=== PATIENT | female | born 1990 | race African-American/Black ===

== ENCOUNTER 2016-08-10 19:53 | Emergency (ER) | payer OTHER, SELFPAY ==
[~2016-08-10 19:53] MED LIST: Iopamidol 370 76% 100 ML VIAL ONE
[2016-08-10 20:34] LABS: #Basophils 0.1 thou/uL (0.0-0.2); #Eosinphils 0.6 thou/uL (0.0-0.7); #Lymphocytes 1.8 thou/uL (1.20-3.40); #Monocytes 0.4 thou/uL (0.11-0.59); #Neutrophils 2.9 thou/uL (1.40-6.50); %Basophils 1.3 % (0.0-1.0); %Lymphocytes 30.8 % (21.0-51.0); %Monocytes 7.5 % (0.0-10.0); %Neutrophils 49.3 % (42.0-75.0); Hemoglobin 13.4 g/dL (12.0-16.0); Mean Corpuscular HGB CONC 31.8 g/dL (32.0-36.0); Mean Corpuscular Hemoglobin 27.3 pg (27.0-31.0); Mean Corpuscular Volume 85.7 fl (81.0-99.0); Mean Platelet Volume 7.1 fL (7.4-10.4); Platelet Count 243 thou/uL (130-400); White Blood Cell (WBC) Count 5.9 thou/uL (4.8-10.8)
[2016-08-10 20:36] LABS: Bilirubin Negative (Negative); Blood, Urine Negative (Negative); Clarity Clear (Clear); Glucose, Urine (Dipstick) Negative (Negative); Leukocyte Negative (Negative); Nitrite Negative (Negative); Protein, Urine (Dipstick) Negative (Neg-Trace)
[2016-08-10 20:37] LABS: Pregnancy Test - Urine (BHCG) Negative (NEGATIVE); Pregu Control Background? CLEAR/WHITE (CLR/WHITE); Pregu Control Bar Appear? YES (CONTROL BAR)
[2016-08-10 20:52] LABS: ALT (SGPT) 21 U/L (8-55); AST (SGOT) 23 U/L (5-34); Albumin 4.4 g/dL (3.5-5.0); Alkaline Phosphatase 102 U/L (40-150); Anion Gap 15 mmol/L (10-20); BUN (Urea Nitrogen) 11 mg/dL (7.0-18.7); Bilirubin, Total 0.3 mg/dL (0.2-1.2); CRP (Inflammatory) Less than 0.50 mg/dL (= or < 0.5); Calc. Creatinine Clearance 0 mL/min (70-130); Calcium 9.8 mg/dL (7.8-10.44); Carbon Dioxide 22 mmol/L (22-29); Chloride 105 mmol/L (98-107); Estimated GFR-MDRD Greater than 90; Glucose 121 mg/dL (70-105); Lipase 21 U/L (8-78); Potassium 3.7 mmol/L (3.5-5.1); Protein, Total 7.4 g/dL (6.0-8.3); Sodium 138 mmol/L (136-145)
[2016-08-10] MEDS ORDERED: diphenhydrAMINE HCl 50 MG/ML 1 ML VIAL ONE (21:08)
--- NOTE | 2016-08-10 21:21 | CT ---
CT OF THE ABDOMEN AND PELVIS WITH CONTRAST 08/10/16 COMPARISON: None. HISTORY: Left lower quadrant and suprapubic abdominal pain for a week. TECHNIQUE: Multiple contiguous axial images were obtained in a CT of the abdomen and pelvis with contrast. Andrea nal reformats were performed. FINDINGS: The liver, gallbladder, kidneys, adrenal glands, spleen and pancreas are unremarkable. No free air, free fluid, or stranding changes are seen in the abdomen or pelvis. Multiple calcifications in the p salas likely represent phleboliths. The reproductive organs are unremarkable. The large and small raina wel are unremarkable. The appendix is normal. The osseous structures, visualized inferior thorax and abdominal wall soft tissues are unremarkable. IMPRESSION: No evidence of acute intra-abdominal/pelvic abnormality. POS: REBEL
== END 2016-08-10 21:45 | disposition home or self-care (01) ==
LOC: NAV ERS 19:53
DX: R10.9 Unspecified abdominal pain (principal)
CPT/HCPCS: 74177; 80053; 81003; 81025; 83690; 85025; 86140; 96374; J1200

== ENCOUNTER 2016-10-08 16:14 | Emergency (ER) | payer SELFPAY ==
[2016-10-08] MEDS ORDERED: Ibuprofen 200 MG TAB ONE (16:45)
--- NOTE | 2016-10-08 17:02 | RAD ---
LEFT FINGER THREE VIEWS: History: Left thumb pain. Comparison: None. FINDINGS: No displaced fracture or malalignment of the thumb. Mild edema of the metacarpal phalangeal joint. IMPRESSION: Metacarpal phalangeal joint edema without fracture or malalignment appreciated. POS: MIN
== END 2016-10-08 17:19 | disposition home or self-care (01) ==
LOC: NAV ERS 16:14
DX: S63.602A Unspecified sprain of left thumb, initial encounter (principal); W22.8XXA Striking against or struck by other objects, initial encounter

== ENCOUNTER 2016-11-30 14:27 | Emergency (ER) | payer SELFPAY ==
[2016-11-30] MEDS ORDERED: Ibuprofen 200 MG TAB ONE (15:00)
[2016-11-30] MEDS ORDERED: Sulfameth/Trimethoprim DS 800-160mg TAB ONE (15:00)
== END 2016-11-30 15:06 | disposition home or self-care (01) ==
LOC: NAV ERS 14:27
DX: L02.415 Cutaneous abscess of right lower limb (principal)
CPT/HCPCS: 99283

== ENCOUNTER 2017-06-13 19:13 | Emergency (ER) | payer SELFPAY ==
[2017-06-13 19:40] LABS: Bilirubin Negative (Negative); Blood, Urine Negative (Negative); Glucose, Urine (Dipstick) Negative (Negative); Leukocyte Negative (Negative); Nitrite Negative (Negative); Protein, Urine (Dipstick) Negative (Neg-Trace); Specific Gravity, Urine 1.025 (1.005-1.030); Urobilinogen 0.2 mg/dL (0.2-1.0); pH, Urine 6.5 (5.0-9.0)
[2017-06-13 19:44] LABS: Clarity SL HAZY (Clear)
[2017-06-13] MEDS ORDERED: Lidocaine Viscous Sol 2% 15 ml UD Cup ONE (19:46)
[2017-06-13] MEDS ORDERED: Mag-Al Plus 1200 MG/1200 MG/120 MG/30 ML UDCUP ONE (19:46)
[2017-06-13 19:47] LABS: Pregnancy Test - Urine (BHCG) Negative (Negative); Pregu Control Background? CLEAR/WHITE (CLR/WHITE); Pregu Control Bar Appear? YES (CONTROL BAR); Specific Gravity 1.025 (1.002-1.036)
[2017-06-13] MEDS ORDERED: Famotidine 20 MG TAB ONE (19:56)
[2017-06-13 20:28] LABS: #Basophils 0.1 thou/uL (0.0-0.2); #Eosinphils 0.3 thou/uL (0.0-0.7); #Lymphocytes 2.3 thou/uL (1.20-3.40); #Monocytes 0.5 thou/uL (0.11-0.59); #Neutrophils 2.9 thou/uL (1.40-6.50); %Basophils 1.6 % (0.0-1.0); %Eosinophils 5.3 % (0.0-10.0); %Lymphocytes 37.9 % (21.0-51.0); %Monocytes 7.8 % (0.0-10.0); %Neutrophils 47.5 % (42.0-75.0); Hemoglobin 13.3 g/dL (12.0-16.0); Mean Corpuscular HGB CONC 32.2 g/dL (32.0-36.0); Mean Corpuscular Hemoglobin 27.3 pg (27.0-31.0); Mean Corpuscular Volume 84.6 fl (81.0-99.0); Mean Platelet Volume 7.6 fL (7.4-10.4); Platelet Count 213 thou/uL (130-400); RBC Distribution Width 11.8 % (11.5-14.5); Red Blood Cell (RBC) Count 4.89 mill/uL (4.20-5.40)
[2017-06-13 20:36] LABS: ALT (SGPT) 21 U/L (8-55); AST (SGOT) 24 U/L (5-34); Albumin 4.7 g/dL (3.5-5.0); Alkaline Phosphatase 82 U/L (40-150); Anion Gap 13 mmol/L (10-20); BUN (Urea Nitrogen) 14 mg/dL (7.0-18.7); Bilirubin, Total 0.4 mg/dL (0.2-1.2); Calc. Creatinine Clearance 0 mL/min (70-130); Calcium 9.8 mg/dL (7.8-10.44); Carbon Dioxide 22 mmol/L (22-29); Chloride 106 mmol/L (98-107); Estimated GFR-MDRD Greater than 90; Globulin 2.8 g/dL (2.4-3.5); Glucose 105 mg/dL (70-105); Lipase 20 U/L (8-78); Potassium 3.7 mmol/L (3.5-5.1); Protein, Total 7.5 g/dL (6.0-8.3); Sodium 137 mmol/L (136-145)
== END 2017-06-13 20:50 | disposition home or self-care (01) ==
LOC: NAV ERS 19:13
DX: R10.13 Epigastric pain (principal)
CPT/HCPCS: 80053; 81003; 81025; 83690; 85025; 99284

== ENCOUNTER 2017-08-21 18:39 | Emergency (ER) | payer SELFPAY ==
[2017-08-21 19:24] LABS: Bilirubin Negative (Negative); Blood, Urine Trace (Negative); Glucose, Urine (Dipstick) Negative (Negative); Leukocyte Moderate (Negative); Nitrite Negative (Negative); Protein, Urine (Dipstick) Trace mg/dL (Neg-Trace); Specific Gravity, Urine 1.025 (1.005-1.030)
[2017-08-21 19:34] LABS: Clarity SL HAZY (Clear)
[2017-08-21 19:37] LABS: Bacteria/HPF 1+ HPF (None Seen); Pregnancy Test - Urine (BHCG) Negative (Negative); Pregu Control Background? CLEAR/WHITE (CLR/WHITE); Pregu Control Bar Appear? YES (CONTROL BAR); RBC/HPF 0-3 HPF (0-3); Specific Gravity 1.025 (1.002-1.036)
== END 2017-08-21 19:54 | disposition home or self-care (01) ==
LOC: NAV ERS 18:39
DX: B37.3 Candidiasis of vulva and vagina (principal)
CPT/HCPCS: 81003; 81015; 81025; 99283

== ENCOUNTER 2017-11-18 08:36 | Emergency (ER) | payer SELFPAY ==
[2017-11-18] MEDS ORDERED: Ondansetron HCl/PF 4 MG/2 ML Vial ONE (09:12)
== END 2017-11-18 09:13 | disposition home or self-care (01) ==
LOC: NAV ERS 08:36
DX: K02.9 Dental caries, unspecified (principal); K03.81 Cracked tooth; R59.0 Localized enlarged lymph nodes
CPT/HCPCS: 99282; J2405

== ENCOUNTER 2017-12-04 15:12 | Emergency (ER) | payer SELFPAY | END 2017-12-04 16:00 | disposition home or self-care (01) | LOC: NAV ERS 15:12 | DX: J06.9 Acute upper respiratory infection, unspecified (principal); S01.512D Laceration without foreign body of oral cavity, subsequent encounter; Z79.899 Other long term (current) drug therapy | CPT/HCPCS: 87081; 87430; 99283 ==

== ENCOUNTER 2018-02-27 15:07 | Emergency (ER) | payer MEDICAID, SELFPAY ==
[2018-02-27] MEDS ORDERED: Sodium Chloride 0.9% 1,000 ML ONE (15:32)
[2018-02-27 15:41] LABS: Bilirubin Negative (Negative); Blood, Urine Negative (Negative); Clarity Clear (Clear); Glucose, Urine (Dipstick) Negative (Negative); Leukocyte Negative (Negative); Nitrite Negative (Negative); Protein, Urine (Dipstick) 30 mg/dL (Neg-Trace)
[2018-02-27 15:43] LABS: Pregnancy Test - Urine (BHCG) Negative (Negative); Pregu Control Background? CLEAR/WHITE (CLR/WHITE); Pregu Control Bar Appear? YES (CONTROL BAR)
[2018-02-27] MEDS ORDERED: Ketorolac Tromethamine 30 MG/ML VIAL ONE (15:47)
[2018-02-27 16:02] LABS: RBC/HPF 0-3 HPF (0-3)
[2018-02-27 16:03] LABS: Bacteria/HPF 2+ HPF (None Seen)
== END 2018-02-27 16:30 | disposition home or self-care (01) ==
LOC: NAV ERS 15:07
DX: G44.209 Tension-type headache, unspecified, not intractable (principal); N39.0 Urinary tract infection, site not specified
CPT/HCPCS: 81003; 81015; 81025; 96361; 96374; J1885; J7050

== ENCOUNTER 2018-06-13 19:58 | Emergency (ER) | payer MEDICAID, SELFPAY ==
[2018-06-13] MEDS ORDERED: Ondansetron ODT 4 MG TAB ONE ×2 (20:30→21:53)
[2018-06-13] MEDS ORDERED: Ondansetron PF 4 MG/2 ML Vial ONE (20:30)
[2018-06-13] MEDS ORDERED: Sodium Chloride 0.9% 1,000 ML ONE (20:30)
[2018-06-13 20:47] LABS: #Basophils 0.1 thou/uL (0.0-0.2); #Eosinphils 0.1 thou/uL (0.0-0.7); #Lymphocytes 1.8 thou/uL (1.20-3.40); #Monocytes 0.7 thou/uL (0.11-0.59); #Neutrophils 5.2 thou/uL (1.40-6.50); %Basophils 0.8 % (0.0-1.0); %Eosinophils 1.5 % (0.0-10.0); %Lymphocytes 22.6 % (21.0-51.0); %Monocytes 8.3 % (0.0-10.0); %Neutrophils 66.8 % (42.0-75.0); Hemoglobin 13.2 g/dL (12.0-16.0); Mean Corpuscular HGB CONC 31.1 g/dL (32.0-36.0); Mean Corpuscular Hemoglobin 26.5 pg (27.0-31.0); Mean Corpuscular Volume 85.2 fL (78.0-98.0); Mean Platelet Volume 7.4 fL (7.4-10.4); Platelet Count 239 thou/uL (130-400); RBC Distribution Width 11.6 % (11.5-14.5); Red Blood Cell (RBC) Count 4.98 mill/uL (4.20-5.40); White Blood Cell (WBC) Count 7.8 thou/uL (4.8-10.8)
[2018-06-13 21:02] LABS: ALT (SGPT) 13 U/L (8-55); AST (SGOT) 19 U/L (5-34); Albumin 4.3 g/dL (3.5-5.0); Alkaline Phosphatase 50 U/L (40-150); Anion Gap 15 mmol/L (10-20); BUN (Urea Nitrogen) 10 mg/dL (7.0-18.7); Bilirubin, Total 0.4 mg/dL (0.2-1.2); Calc. Creatinine Clearance 0 mL/min (70-130); Calcium 9.7 mg/dL (7.8-10.44); Carbon Dioxide 20 mmol/L (22-29); Chloride 107 mmol/L (98-107); Estimated GFR-MDRD Greater than 90; Globulin 2.6 g/dL (2.4-3.5); Glucose 73 mg/dL (70-105); Lipase 26 U/L (8-78); Protein, Total 6.9 g/dL (6.0-8.3); Sodium 138 mmol/L (136-145)
[2018-06-13 21:42] LABS: Bilirubin Small (Negative); Blood, Urine Negative (Negative); Clarity Clear (Clear); Glucose, Urine (Dipstick) Negative (Negative); Leukocyte Negative (Negative); Nitrite Negative (Negative); Protein, Urine (Dipstick) Trace mg/dL (Neg-Trace)
[2018-06-13 21:44] LABS: Specific Gravity, Urine 1.028 (1.002-1.036)
== END 2018-06-13 22:10 | disposition home or self-care (01) ==
LOC: NAV ERS 19:58
DX: O21.0 Mild hyperemesis gravidarum (principal); O99.89 Other specified diseases and conditions complicating pregnancy, childbirth and the puerperium; R10.11 Right upper quadrant pain; R10.12 Left upper quadrant pain; Z3A.10 10 weeks gestation of pregnancy
CPT/HCPCS: 36416; 80053; 81003; 83690; 85025; 96361; 96374; J2405; J7050; Q0162

== ENCOUNTER 2018-07-01 10:39 | Emergency (ER) | payer MEDICAID, OTHER ==
[2018-07-01] MEDS ORDERED: Metoclopramide HCl 10 MG/2 ML VIAL ONE (11:08)
[2018-07-01] MEDS ORDERED: diphenhydrAMINE 50 MG/ML VIAL ONE (11:08)
[2018-07-01] MEDS ORDERED: Sodium Chloride 0.9% 1,000 ML ONE (11:08)
[2018-07-01 11:27] LABS: ALT (SGPT) 13 U/L (8-55); AST (SGOT) 23 U/L (5-34); Albumin 4.1 g/dL (3.5-5.0); Alkaline Phosphatase 44 U/L (40-150); Anion Gap 17 mmol/L (10-20); BUN (Urea Nitrogen) 6 mg/dL (7.0-18.7); Bilirubin, Total 0.5 mg/dL (0.2-1.2); Calc. Creatinine Clearance 0 mL/min (70-130); Calcium 9.8 mg/dL (7.8-10.44); Carbon Dioxide 19 mmol/L (22-29); Chloride 104 mmol/L (98-107); Estimated GFR-MDRD Greater than 90; Globulin 2.7 g/dL (2.4-3.5); Glucose 79 mg/dL (70-105); Lipase 19 U/L (8-78); Potassium 3.7 mmol/L (3.5-5.1); Protein, Total 6.8 g/dL (6.0-8.3); Sodium 136 mmol/L (136-145)
[2018-07-01 11:32] LABS: #Basophils 0.1 thou/uL (0.0-0.2); #Eosinphils 0.1 thou/uL (0.0-0.7); #Lymphocytes 1.4 thou/uL (1.20-3.40); #Monocytes 0.4 thou/uL (0.11-0.59); #Neutrophils 4.6 thou/uL (1.40-6.50); %Basophils 1.1 % (0.0-1.0); %Eosinophils 1.7 % (0.0-10.0); %Lymphocytes 21.5 % (21.0-51.0); %Monocytes 5.5 % (0.0-10.0); %Neutrophils 70.2 % (42.0-75.0); Hemoglobin 12.3 g/dL (12.0-16.0); Mean Corpuscular HGB CONC 31.6 g/dL (32.0-36.0); Mean Corpuscular Hemoglobin 26.8 pg (27.0-31.0); Mean Corpuscular Volume 84.6 fL (78.0-98.0); Mean Platelet Volume 6.5 fL (7.4-10.4); Platelet Count 238 thou/uL (130-400); RBC Distribution Width 11.8 % (11.5-14.5); Red Blood Cell (RBC) Count 4.59 mill/uL (4.20-5.40); White Blood Cell (WBC) Count 6.5 thou/uL (4.8-10.8)
[2018-07-01 12:24] LABS: Bilirubin Negative (Negative); Blood, Urine Trace (Negative); Clarity Clear (Clear); Glucose, Urine (Dipstick) Negative (Negative); Leukocyte Negative (Negative); Nitrite Negative (Negative); Protein, Urine (Dipstick) Negative (Neg-Trace)
[2018-07-01 12:34] LABS: Bacteria/HPF Rare-Few HPF (None Seen); RBC/HPF 0-3 HPF (0-3); WBC/HPF None Seen HPF (0-3)
[2018-07-01 12:35] LABS: Other Microscopic Description NO
== END 2018-07-01 12:40 | disposition home or self-care (01) ==
LOC: NAV ERS 10:39
DX: O21.0 Mild hyperemesis gravidarum (principal); Z3A.12 12 weeks gestation of pregnancy
CPT/HCPCS: 36415; 80053; 81003; 81015; 83690; 85025; 96361; 96374; 96375; J1200; J2765; J7050

== ENCOUNTER 2018-11-14 07:31 | Emergency (ER) | payer OTHER ==
[2018-11-14] MEDS ORDERED: Sodium Chloride 0.9% 1,000 ML ONE (07:57)
[2018-11-14] MEDS ORDERED: Ondansetron PF 4 MG/2 ML Vial ONE (07:57)
[2018-11-14 08:08] LABS: #Eosinphils 0.1 thou/uL (0.0-0.7); #Lymphocytes 1.5 thou/uL (1.20-3.40); #Monocytes 0.8 thou/uL (0.11-0.59); #Neutrophils 6.3 thou/uL (1.40-6.50); %Basophils 0.5 % (0.0-1.0); %Eosinophils 1.5 % (0.0-10.0); %Lymphocytes 16.9 % (21.0-51.0); %Monocytes 8.9 % (0.0-10.0); %Neutrophils 72.2 % (42.0-75.0); Hemoglobin 11.7 g/dL (12.0-16.0); Mean Corpuscular HGB CONC 32.5 g/dL (32.0-36.0); Mean Corpuscular Hemoglobin 27.9 pg (27.0-31.0); Mean Corpuscular Volume 85.8 fL (78.0-98.0); Mean Platelet Volume 7.9 fL (7.4-10.4); Platelet Count 171 thou/uL (130-400); RBC Distribution Width 11.7 % (11.5-14.5); Red Blood Cell (RBC) Count 4.18 mill/uL (4.20-5.40); White Blood Cell (WBC) Count 8.7 thou/uL (4.8-10.8)
[2018-11-14 08:21] LABS: ALT (SGPT) 17 U/L (8-55); AST (SGOT) 19 U/L (5-34); Albumin 3.6 g/dL (3.5-5.0); Alkaline Phosphatase 163 U/L (40-110); Anion Gap 14 mmol/L (10-20); BUN (Urea Nitrogen) 6 mg/dL (7.0-18.7); Bilirubin, Total 0.3 mg/dL (0.2-1.2); Calc. Creatinine Clearance 0 mL/min (70-130); Calcium 9.4 mg/dL (7.8-10.44); Carbon Dioxide 19 mmol/L (22-29); Chloride 107 mmol/L (98-107); Estimated GFR-MDRD Greater than 90; Globulin 2.6 g/dL (2.4-3.5); Glucose 93 mg/dL (70-105); Potassium 3.6 mmol/L (3.5-5.1); Protein, Total 6.2 g/dL (6.0-8.3); Sodium 136 mmol/L (136-145)
--- NOTE | 2018-11-14 09:34 | ULT ---
OBSTETRIC SONOGRAM: Date: 11/14/18 HISTORY: Pelvic pain. Third trimester gestation. FINDINGS: Single intrauterine gestation in cephalic presentation. Amniotic fluid index 16.8. Grade I placenta i s anterior and to the maternal right. Exam was truncated due to patient being transferred. Advanced f etal age limits anatomic detail. Measurements are as follows: BPD: 31 weeks/5 days HC: 31 weeks/5 days AC: 30 weeks/5 days IMPRESSION: Single, viable intrauterine gestation. Estimated gestational age based on today's sonogram is 31 week s/2 days. No gross abnormalities are demonstrated. POS: TPC
== END 2018-11-14 08:24 | disposition short-term general hospital (02) ==
LOC: NAV ERS 07:31
DX: O21.2 Late vomiting of pregnancy (principal); O99.89 Other specified diseases and conditions complicating pregnancy, childbirth and the puerperium; R10.2 Pelvic and perineal pain; Z3A.31 31 weeks gestation of pregnancy
CPT/HCPCS: 76815; 80053; 85025; 96374; J2405; J7050

== ENCOUNTER 2019-05-04 12:46 | Emergency (ER) | payer OTHER ==
[2019-05-04 13:37] LABS: #Basophils 0.1 thou/uL (0.0-0.2); #Eosinphils 0.2 thou/uL (0.0-0.7); #Monocytes 0.5 thou/uL (0.11-0.59); #Neutrophils 2.9 thou/uL (1.40-6.50); %Basophils 1.3 % (0.0-1.0); %Eosinophils 3.4 % (0.0-10.0); %Monocytes 8.1 % (0.0-10.0); %Neutrophils 52.2 % (42.0-75.0); Hemoglobin 12.6 g/dL (12.0-16.0); Mean Corpuscular HGB CONC 30.6 g/dL (32.0-36.0); Mean Corpuscular Hemoglobin 26.1 pg (27.0-31.0); Mean Corpuscular Volume 85.4 fL (78.0-98.0); Mean Platelet Volume 7.8 fL (7.4-10.4); Platelet Count 232 thou/uL (130-400); Red Blood Cell (RBC) Count 4.85 mill/uL (4.20-5.40); White Blood Cell (WBC) Count 5.6 thou/uL (4.8-10.8)
[2019-05-04 13:49] LABS: ALT (SGPT) 19 U/L (8-55); AST (SGOT) 17 U/L (5-34); Albumin 4.5 g/dL (3.5-5.0); Alkaline Phosphatase 141 U/L (40-110); Anion Gap 15 mmol/L (10-20); BUN (Urea Nitrogen) 14 mg/dL (7.0-18.7); Bilirubin, Total 0.3 mg/dL (0.2-1.2); Calc. Creatinine Clearance 0 mL/min (70-130); Carbon Dioxide 22 mmol/L (22-29); Chloride 107 mmol/L (98-107); Estimated GFR-MDRD Greater than 90; Globulin 2.8 g/dL (2.4-3.5); Glucose 97 mg/dL (70-105); Potassium 3.6 mmol/L (3.5-5.1); Protein, Total 7.3 g/dL (6.0-8.3); Sodium 140 mmol/L (136-145)
[2019-05-04 13:56] LABS: Pregnancy Test - Urine (BHCG) Negative (Negative); Pregu Control Background? CLEAR/WHITE (CLR/WHITE); Pregu Control Bar Appear? YES (CONTROL BAR); Specific Gravity 1.031 (1.002-1.036)
[2019-05-04 13:59] LABS: Amphetamine Not Detected (NotDetected); Barbiturates Screen Not Detected (NotDetected); Benzodiazepine Screen Not Detected (NotDetected); Cocaine Metabolite Screen Not Detected (NotDetected); Medtox Control Line Valid? VALID (VALID); Methadone Not Detected (NotDetected); Methamphetamine Not Detected (NotDetected); Opiate Screen Not Detected (NotDetected); Oxycodone Screen Not Detected (NotDetected); Phencyclidine (PCP) Not Detected (NotDetected); THC/Cannabinoid Screen Not Detected (NotDetected); Tricyclic Screen Not Detected (NotDetected)
--- NOTE | 2019-05-04 14:22 | RAD ---
EXAM: Chest 2 views: HISTORY: Chest pain COMPARISON: None. FINDINGS: There is a normal-sized cardiomediastinal silhouette. There is no evidence of consolidation, mass, or pleural effusion. The bones are unremarkable. IMPRESSION: No evidence of acute cardiopulmonary disease
== END 2019-05-04 14:44 | disposition home or self-care (01) ==
LOC: NAV ERS 12:46
DX: R07.2 Precordial pain (principal)
CPT/HCPCS: 36415; 71046; 80053; 80306; 81025; 84484; 85025; 93005

== ENCOUNTER 2021-11-05 22:00 | Emergency (ER) | payer SELFPAY ==
[2021-11-05] MEDS ORDERED: Ketorolac Tromethamine 60 MG/2 ML VIAL ONE (22:46)
== END 2021-11-05 23:19 | disposition home or self-care (01) ==
LOC: NAV ERS 22:00
DX: R51.9 Headache, unspecified (principal)
CPT/HCPCS: 96372; 99283; J1885

== ENCOUNTER 2022-01-11 02:44 | Emergency (ER) | payer SELFPAY ==
[2022-01-11] MEDS ORDERED: Ondansetron ODT 4 MG TAB ONE (02:57)
[2022-01-11 03:35] LABS: Bilirubin Negative (Negative); Blood, Urine Negative (Negative); Clarity Clear (Clear); Glucose, Urine (Dipstick) Negative (Negative); Ketone, Urine Trace mg/dL (Negative); Leukocyte Negative (Negative); Nitrite Negative (Negative); Protein, Urine (Dipstick) Negative (Neg-Trace); Specific Gravity, Urine 1.025 (1.005-1.030); Urobilinogen > or = 8.0 mg/dL (Less than 2)
== END 2022-01-11 03:55 | disposition home or self-care (01) ==
LOC: NAV ERS 02:44
DX: R11.2 Nausea with vomiting, unspecified (principal)
CPT/HCPCS: 81003; 99284; Q0162

== ENCOUNTER 2022-11-20 13:33 | Emergency (ER) | payer MEDICAID, SELFPAY ==
[2022-11-20] MEDS ORDERED: Ibuprofen 200 MG TAB ONE (14:38)
[2022-11-20] MEDS ORDERED: Ipratropium/Albuterol 3 ML NEB ONE (14:44)
== END 2022-11-20 15:54 | disposition home or self-care (01) ==
LOC: NAV ERS 13:33
DX: J10.1 Influenza due to other identified influenza virus with other respiratory manifestations (principal); Z20.822 Contact with and (suspected) exposure to COVID-19
CPT/HCPCS: 87635; 87804; 99283; J7620

== ENCOUNTER 2024-12-26 08:30 | Emergency (ER) | payer OTHER, SELFPAY ==
[2024-12-26] MEDS ORDERED: Bacitracin 1 PK ONE (09:00)
[2024-12-26 09:20] LABS: Pregnancy Test - Urine (BHCG) Negative (Negative); Pregu Control Background? CLEAR/WHITE (CLR/WHITE); Pregu Control Bar Appear? YES (CONTROL BAR)
== END 2024-12-26 10:42 | disposition home or self-care (01) ==
LOC: NAV ERS 08:30
DX: S39.012A Strain of muscle, fascia and tendon of lower back, initial encounter (principal); S16.1XXA Strain of muscle, fascia and tendon at neck level, initial encounter; S29.012A Strain of muscle and tendon of back wall of thorax, initial encounter; S60.222A Contusion of left hand, initial encounter; S40.812A Abrasion of left upper arm, initial encounter; T22.032A Burn of unspecified degree of left upper arm, initial encounter; V89.2XXA Person injured in unspecified motor-vehicle accident, traffic, initial encounter
CPT/HCPCS: 72125; 72128; 72131; 81025; 90471; 90715